=== PATIENT | male | born 1965 | race Caucasian/White ===

== ENCOUNTER 2017-09-02 02:26 | Emergency (ER) | payer OTHER ==
[~2017-09-02] VITALS: Ht 195.6 cm; Wt 111.1 kg
[~2017-09-02 02:26] MED LIST: ALPRAZOLAM; ALPRAZOLAM ER1 MG PO; ALPRAZOLAM PO; CARAFATE 1 GM TA1 G1 PO; CEFTIN500 MG PO; CLONIDINE HCL0.3 M2 PO; COMPAZINE25 MG RE; DAZIDOX10 MG PO; DILAUDID 4 MG TA4 M1 PO; FLEXERIL PO; IBUPROFEN 200200 M1 PO; LOPRESSOR100 MG PO; LORTAB 5 MG/5001 TA1 PO; MEDROL DOSPAK21 TA1 PO; METOPROLOL 100100 M1 PO; MOBIC7.5 M1 PO; NEURONTIN 300300 M1 PO; NEURONTIN800 MG PO; NORCO 10-325 T1 EACH PO; NORCO 5-325 TA1 EACH PO; NORFLEX100 MG PO; NORVASC10 MG PO; OMEPRAZOLE 20 M20 M1 PO; OXYCODONE HCL15 MG PO; OXYCONTIN20 M1 PO; OXYCONTIN40 MG PO; PERCOCET 10-321 EACH PO; PERCOCET 10-651 EACH PO; PERCOCET 5-3251 EACH PO; PERCOCET 7.5-31 EACH PO; PHENADOZ25 MG RC; PHENERGAN 25 MG25 M1 PO; PHENERGAN 25 MG25 MG PO; PHENERGAN25 M2 RECTAL; PHENERGAN25 MG RE; PREDNISONE 10 M10 M1 PO; PRILOSEC20 MG PO; TAMSULOSIN HCL0.4 M1 PO; TEKTURNA300 MG PO; TOPROL XL100 MG PO; TOPROL XL200 MG PO; TRAMADOL 50 MG50 MG PO; VALIUM2 MG PO; VALIUM5 MG PO; XANAX 0.5 MG0.5 M1 PO; XANAX XR1 MG; XANAX XR1 MG PO; ZESTRIL30 MG PO; ZOFRAN ODT4 MG PO; ZOFRAN4 MG PO
[2017-09-02 03:19] LABS: ABSOLUTE NEUTROPHILS 5.1 thou/uL (1.4-8.2); BASOPHILS 0.4 % (0.0-2.0); HEMATOCRIT 38.7 % (42.0-52.0); HEMOGLOBIN 13.4 gm/dL (14.0-18.0); MCH 29.4 pg (26.0-34.0); MCHC 34.6 g/dL (28.0-37.0); MCV 84.9 fL (80.0-100.0); MONOCYTES 7.7 % (1.0-8.0); PLATELET COUNT 196 thou/uL (150-400); POLYS 73.9 % (36.0-66.0); RBC 4.56 mil/uL (4.50-6.00); RDW 13.9 % (10.5-14.5); WBC 6.9 thou/uL (4.0-11.0)
[2017-09-02 03:28] LABS: CALCIUM 9.2 mg/dL (8.5-10.1); POTASSIUM 4.4 mmol/L (3.5-5.1)
[2017-09-02] MEDS ORDERED: NORCO 5-325 TA1 EACH PO (04:06)
[2017-09-02 04:39] VITALS: BP 211/94
== END 2017-09-02 04:47 | disposition home or self-care (01) ==
LOC: ER 02:26
PROVIDERS: Emergency Medicine
DX: S80.811A Abrasion, right lower leg, initial encounter (principal); M25.571 Pain in right ankle and joints of right foot; R60.0 Localized edema; I10 Essential (primary) hypertension; Z72.89 Other problems related to lifestyle; F17.210 Nicotine dependence, cigarettes, uncomplicated; F41.9 Anxiety disorder, unspecified; Z90.49 Acquired absence of other specified parts of digestive tract; Z88.5 Allergy status to narcotic agent; Z88.8 Allergy status to other drugs, medicaments and biological substances; Z88.6 Allergy status to analgesic agent; X58.XXXA Exposure to other specified factors, initial encounter; Y92.89 Other specified places as the place of occurrence of the external cause; Y93.89 Activity, other specified; Y99.8 Other external cause status

== ENCOUNTER 2017-09-17 05:06 | Emergency (ER) | payer OTHER ==
[~2017-09-17] VITALS: Ht 195.6 cm; Wt 111.1 kg
[2017-09-17 06:08] LABS: EOSINOPHILS 1.8 % (0.0-3.0); HEMATOCRIT 50.3 % (42.0-52.0); HEMOGLOBIN 16.8 gm/dL (14.0-18.0); LYMPHOCYTES 33.1 % (24.0-44.0); MCH 28.6 pg (26.0-34.0); MCHC 33.4 g/dL (28.0-37.0); MCV 85.7 fL (80.0-100.0); MONOCYTES 11.2 % (1.0-8.0); PLATELET COUNT 242 thou/uL (150-400); POLYS 52.9 % (36.0-66.0); RBC 5.87 mil/uL (4.50-6.00); RDW 15.5 % (10.5-14.5); WBC 9.4 thou/uL (4.0-11.0)
[2017-09-17 06:14] LABS: CALCIUM 8.8 mg/dL (8.5-10.1); CREATININE 1.2 mg/dL (0.7-1.3); POTASSIUM 4.4 mmol/L (3.5-5.1)
[2017-09-17 06:19] LABS: TOTAL BILIRUBIN 1.9 mg/dL (<0.1-1.0); TOTAL PROTEIN 9.2 g/dL (6.4-8.2)
[2017-09-17 07:25] LABS: URINE BLOOD 1+ (Negative); URINE CLARITY CLEAR; URINE COLOR YELLOW; URINE GLUCOSE-RANDOM* NEGATIVE (Negative); URINE KETONES NEGATIVE (Negative); URINE LEUKOCYTES-REFLEX NEGATIVE (Negative); URINE NITRITE-REFLEX NEGATIVE (Negative); URINE PROTEIN (DIPSTICK) TRACE (Negative); URINE SPECIFIC GRAVITY 1.025 (1.005-1.035)
[2017-09-17 07:34] LABS: ICTOTEST (BILI CONFIRMATORY) Negative (Negative); URINE BILIRUBIN NEGATIVE (Negative)
[2017-09-17 07:48] LABS: BACTERIA-REFLEX 1-9 Few /HPF (None Seen); CRYSTALS None Seen /LPF (None Seen); SQUAMOUS 0-3 Few /LPF (0-3); URINE RBC 0-2 Rare /HPF (0-2); URINE WBC-REFLEX 0-5 Rare /HPF (0-5)
[2017-09-17] MEDS ORDERED: TOPROL XL100 MG PO (07:56)
[2017-09-17 08:05] VITALS: BP 168/99
== END 2017-09-17 08:09 | disposition home or self-care (01) ==
LOC: ER 05:06
PROVIDERS: Emergency Medicine
DX: I16.0 Hypertensive urgency (principal); I10 Essential (primary) hypertension; R94.5 Abnormal results of liver function studies; M54.9 Dorsalgia, unspecified; R10.9 Unspecified abdominal pain; Z90.49 Acquired absence of other specified parts of digestive tract; F17.210 Nicotine dependence, cigarettes, uncomplicated; Z88.8 Allergy status to other drugs, medicaments and biological substances